=== PATIENT | female | born 1995 | race Caucasian/White ===

== ENCOUNTER → 2021-09-02 | Outpatient (CLI) | payer OTHER | LOC: KOH-I 08:30 | DX: K76.0 Fatty (change of) liver, not elsewhere classified (principal); B18.2 Chronic viral hepatitis C | CPT/HCPCS: 76705 ==

== ENCOUNTER 2022-02-15 02:02 | Emergency (ER) | payer OTHER ==
[2022-02-15 03:16] LABS: HEMOGLOBIN 12.4 gm/dl (12.3-15.3); RED BLOOD COUNT 3.95 M/UL (4.00-5.10); WHITE BLOOD COUNT 7.7 K/UL (4.5-11.0)
[2022-02-15 03:33] LABS: BUN/CREATININE RATIO 11 (0-10)
== END 2022-02-15 04:56 | disposition left against medical advice (07) ==
LOC: ER1 02:02
PROVIDERS: Student in an Organized Health Care Education/Training Program
DX: R06.02 Shortness of breath (principal); J45.909 Unspecified asthma, uncomplicated; Z88.0 Allergy status to penicillin; Z88.5 Allergy status to narcotic agent
CPT/HCPCS: 71046; 80053; 82550; 82553; 84484; 85025; 93005; 99281